=== PATIENT | male | born 1955 | race Caucasian/White ===

== ENCOUNTER 2018-03-28 08:57 | Outpatient (CLI) | payer BC ==
[2018-03-28] MEDS ORDERED: Gadobenate Dimeglumine 529 MG/1 ML (20ML VIAL) ONE (09:00)
[2018-03-28 10:13] LABS: Estimated GFR-MDRD - POC Greater than 90
--- NOTE | 2018-03-28 12:26 | MRI ---
MRI BRAIN AND INTERNAL AUDITORY CANALS WITH AND WITHOUT CONTRAST: Date: 03/28/18 HISTORY: 62 year old male with bilateral sensorineural hearing loss. TECHNIQUE: Multiple sequences obtained in axial, sagittal, and coronal planes; both whole brain images and thin slices through the IACs, pre and post IV injection of gadolinium-based contrast agent: 20 mL MultiHan ce. FINDINGS: The ventricles are normal in size and configuration. There is no restricted diffusion, abnormal intr aaxial enhancement, mass, midline shift or any other mass effect, recent intraaxial hemorrhage, or ex traaxial fluid collection. There are several scattered small T2-hyperintensities in the cerebral whit e matter consistent with chronic ischemic white matter changes due to mild microvascular atherosclero sis. There is no abnormal enhancement, mass, or morphologic abnormality, involving the cerebellopontine an gles, 7th-8th nerve complexes, internal auditory canals, cochleae, vestibules, vestibular aqueducts, or semicircular canals. There is severe mucosal thickening throughout the bilateral ethmoid air cells. There is mild mucosal thickening in the frontal, sphenoid, and maxillary sinuses. Fluid in some of the bilateral mastoid ai r cells. In the right fossa of Rosenmuller (lateral pharyngeal recess), there is a well circumscribed, dumbbel l-shaped mass, with its anteromedial portion bulging into the nasopharyngeal airway. It measures appr oximately 2 x 1 x 2 cm. It has homogeneous internal signal intensity, almost isointense to muscle on T1 WI, hyperintense on FLAIR and T2 WI, and is surrounded by thin rim enhancement, but no central enh ancement. No restricted diffusion within it. IMPRESSION: 1. Mild chronic ischemic white matter changes. 2. No other pathology of brain and inner ear identified. 3. Discrete 2 cm mass in the right fossa of Rosenmuller. This is probably a mucus retention cyst with proteinaceous contents, but direct visualization is recommended. 4. Severe mucosal thickening throughout the bilateral ethmoid sinuses. 5. Small bilateral mastoid effusions. patti[] POS: WEN
== END 2018-03-28 08:58 | disposition home or self-care (01) ==
LOC: SCSMRI 08:57
PROVIDERS: ATTEND Otolaryngology
DX: H90.3 Sensorineural hearing loss, bilateral (principal); J32.2 Chronic ethmoidal sinusitis; H74.93 Unspecified disorder of middle ear and mastoid, bilateral; G93.9 Disorder of brain, unspecified
CPT/HCPCS: 70553; 82565; A9579